=== PATIENT | male | born 1975 | race African-American/Black ===

== ENCOUNTER 2023-10-22 10:42 | Emergency (ER) | payer OTHER ==
[2023-10-22] MEDS ORDERED: Ibuprofen 800 MG TAB ONE (11:36)
== END 2023-10-22 11:41 | disposition home or self-care (01) ==
LOC: ERS 10:42
DX: H60.501 Unspecified acute noninfective otitis externa, right ear (principal); J45.909 Unspecified asthma, uncomplicated; Z79.899 Other long term (current) drug therapy; F17.210 Nicotine dependence, cigarettes, uncomplicated
CPT/HCPCS: 99282